=== PATIENT | male | born 1995 | race Caucasian/White ===

== ENCOUNTER 2024-10-29 05:02 | Emergency (ER) | payer OTHER ==
[2024-10-29 05:14] VITALS: BP 108/66; PULSE 88; RESP 18; TEMP 97.9; BMI 22.8
[2024-10-29] MEDS ORDERED: IBUPROFEN 600 MG TABLET (FP) PO ONE (05:39)
[2024-10-29] MEDS: IBUPROFEN 600 MG TABLET (FP) PO ONE (05:45)
== END 2024-10-29 06:55 | disposition home or self-care (01) ==
LOC: JER 05:02
DX: S61.212A Laceration without foreign body of right middle finger without damage to nail, initial encounter (principal); S50.311A Abrasion of right elbow, initial encounter; W01.0XXA Fall on same level from slipping, tripping and stumbling without subsequent striking against object, initial encounter
CPT/HCPCS: 73110-TC-LT-FY; 73130-TC-LT-FY; 99283-25